=== PATIENT | female | born 1975 | race African-American/Black ===

== ENCOUNTER 2019-12-15 21:16 | Emergency (ER) | payer MEDICARE, OTHER ==
[~2019-12-15] VITALS: Ht 170.2 cm; Wt 122.5 kg
[2019-12-15] MEDS ORDERED: IBUPROFEN600 MG ORAL (21:36)
--- NOTE | 2019-12-15 21:36 | Emergency Room Report ---
History of Present Illness General Chief Complaint: Pain Source: Patient Present Illness HPI Is a 44-year-old female with no past medical history. She presents with chief plaint of left knee pain. Onset for the last 3 days or so. She just started a new job at the [employer] and been under feet a lot. Also a lot of walking. She has left knee pain. No trauma. No fever chills but felt swollen. When she walks the pain radiate down her lower extremity. No fever chills but no nausea no vomiting. Pain is 7 out of 10. Worse with walking. Better with rest. Allergies: Coded Allergies: No Known Allergies (Unverified , 12/15/19) COVID-19 Screening Contact w/high risk pt: No Recent Travel to affected area: No Experienced COVID-19 symptoms?: No Patient History Past Medical History: see triage record, old chart reviewed Past Surgical History: none Pertinent Family History: none Social History: Denies: smoking Now: No Immunizations: other Reviewed Nursing Documentation: PMH: Agreed; PSxH: Agreed Nursing Documentation-PMH Past Medical History: No History, Except For Hx Asthma: Yes Review of Systems Eye: Denies: eye pain, blurred vision ENT: Denies: ear pain, nose congestion, throat swelling Respiratory: Denies: cough, shortness of breath Cardiovascular: Denies: chest pain, palpitations Gastrointestinal: Denies: abdominal pain, diarrhea, nausea, vomiting Musculoskeletal: Reports: joint pain, joint swelling; Denies: back pain Skin: Denies: rash Neurological: Denies: headache, numbness Endocrine: Denies: increased thirst, increased urine Hematologic/Lymphatic: Denies: easy bruising All Other Systems: negative except mentioned in HPI Physical Exam Vital Signs Date Time Temp Pulse Resp B/P (MAP) Pulse Ox O2 Delivery O2 Flow Rate FiO2 12/15/19 21:21 98.4 81 18 138/96 (110) 96 Room Air Vitals unremarkable Sp02 EP Interpretation: reviewed, normal General Appearance: well appearing, no apparent distress, alert, obese Head: normocephalic, atraumatic Eyes: bilateral eye PERRL, bilateral eye EOMI ENT: hearing grossly normal, normal pharynx Neck: full range of motion, supple, no meningismus Respiratory: chest non-tender, lungs clear, normal breath sounds Cardiovascular #1: regular rate, rhythm, no murmur Gastrointestinal: normal bowel sounds, non tender, no mass, no organomegaly, no bruit, non-distended Musculoskeletal: back normal, normal range of motion, gait/station normal, other - Left knee: There is mild effusion. Knee is stable. No instability. Pulse normal. Sensation normal. Psychiatric: mood/affect normal Procedures Splinting Splinting : Consent: Verbal Location: Left knee Pre-Made Type: JUANI wrap Pre-Proc Neuro Vasc Exam: normal Post-Proc Neuro Vasc Exam: normal Patient Tolerated: Well Complications: None Medical Decision Making Diagnostic Impression: Primary Impression: Sprain of left knee Qualified Codes: S83.92XA - Sprain of unspecified site of left knee, initial encounter ER Course Patient with left knee sprain. There is no trauma. This probably secondary to her obesity. No evidence of any fracture or dislocation. No evidence of any septic joint. Other X-Ray Diagnostic Results Other X-Ray Diagnostic Results : X-Ray ordered: Left knee x-rays # of Views/Limited Vs Complete: 4 View Indication: Pain EP Interpretation: Yes Interpretation: no dislocation, no soft tissue swelling, no fractures Impression: No acute disease Electronically Signed by: Garfield Brice MD Last Vital Signs Date Time Temp Pulse Resp B/P (MAP) Pulse Ox O2 Delivery O2 Flow Rate FiO2 12/15/19 21:21 98.4 81 18 138/96 (110) 96 Room Air Status: improved Disposition: HOME, SELF-CARE Condition: Stable Scripts Ibuprofen* (MOTRIN*) 600 Mg Tablet 600 MG ORAL THREE TIMES A DAY, #30 TAB 0 Refills Prov: Garfield Brice MD 12/15/19 Additional Instructions: Ice pack to the knee. Elevate leg. Follow-up with your doctor in 7 days. You may need referral for physical therapy and or MRI. Return if symptoms worsen. Garfield Brice MD Dec 15, 2019 21:36
[2019-12-15 21:55] VITALS: BP 138/96
--- NOTE | 2019-12-16 10:00 | Diagnostic Imaging Report ---
Indication: Left knee pain Technique: 3 views of the knee Comparison: None Findings: There are degenerative changes of the patellofemoral joint compartment and minimal medial compartmental degenerative joint space narrowing. Osteophytes are seen laterally. There is a small suprapatellar effusion. No acute fractures. No dislocations. Impression: Degenerative changes. No acute bony trauma
== END 2019-12-15 21:55 | disposition home or self-care (01) ==
LOC: EMR 21:40
DX: S83.92XA Sprain of unspecified site of left knee, initial encounter (principal); Y93.01 Activity, walking, marching and hiking; E66.9 Obesity, unspecified; Z68.41 Body mass index [BMI] 40.0-44.9, adult
CPT/HCPCS: 99283

== ENCOUNTER 2020-03-06 23:13 | Emergency (ER) | payer MEDICARE ==
[~2020-03-06] VITALS: Ht 170.2 cm; Wt 113.4 kg
[~2020-03-06 23:13] MED LIST: IBUPROFEN600 MG ORAL
--- NOTE | 2020-03-06 23:35 | Emergency Room Report ---
History of Present Illness General Chief Complaint: General Complaint Source: Patient Present Illness HPI Patient is a 44-year-old female presents after increased right-sided headache. Intermittent episodes. Associated feeling of lightheadedness. Denies any vomiting or fever. Had not been having any chest pain or cough. Prior history of diabetes. She states she takes metformin. Patient denies any recent sick contacts. She is currently working at the post office. Reports having prior history of right eye surgery. Denies any new visual changes. Allergies: Coded Allergies: No Known Allergies (Unverified , 12/15/19) COVID-19 Screening Contact w/high risk pt: No Recent Travel to affected area: No Experienced COVID-19 symptoms?: No COVID-19 Testing performed BEAM WARPER: No Patient History Reviewed Nursing Documentation: PMH: Agreed; PSxH: Agreed Nursing Documentation-PMH Hx Hypertension: Yes Hx Asthma: Yes Hx Diabetes: Yes Review of Systems All Other Systems: negative except mentioned in HPI Physical Exam Vital Signs Date Time Temp Pulse Resp B/P (MAP) Pulse Ox O2 Delivery O2 Flow Rate FiO2 03/06/20 23:19 99.1 111 16 133/89 (104) 96 Room Air Sp02 EP Interpretation: reviewed, normal General Appearance: normal inspection, well appearing, no apparent distress, alert, GCS 15 Head: atraumatic ENT: normal ENT inspection, hearing grossly normal, normal voice Neck: normal inspection, full range of motion, supple, no bony tend Respiratory: normal inspection, lungs clear, normal breath sounds, no respiratory distress, no retraction, no wheezing Cardiovascular #1: regular rate, rhythm, no edema Gastrointestinal: normal inspection, normal bowel sounds, non tender, soft, no guarding, no hernia Genitourinary: no CVA tenderness Musculoskeletal: normal inspection, back normal, normal range of motion Neurologic: alert, motor strength/tone normal, fast food supervisor III-XII nml as tested, oriented x3, responsive, speech normal, normal inspection Psychiatric: normal inspection, judgement/insight normal, mood/affect normal Medical Decision Making Diagnostic Impression: Primary Impression: Headache Additional Impressions: Urinary tract infection Trichomoniasis ER Course Patient presented for headache. Differential diagnosis include was not limited to urinary tract infection, hypoglycemia, intracranial hemorrhage, coronavirus infection, among others. Because of complexity of patient's case laboratory tests and imaging studies were ordered.Patient laboratory testing showed some evidence of urinary infection. Patient was given IV Rocephin as well as IV fluids. She was noted to have improvement in her headache after Reglan. CT imaging showed no evidence of acute intracranial pathology. Urinalysis did show some evidence of trichomonas and patient was advised with this. She was given oral Flagyl as well as prescription for further medications for urinary infection. Patient is advised to return if worse. She is advised to have full STI testing with her doctor. Patient was also advised to have coronavirus testing as an outpatient. The patient is advised to follow up with primary care doctor in 1-2 days. Patient is advised to return if any worsening condition or if any changes in status that are concerning. This report is dictated with [employer]over lighthouse keeper software which may occasionally lead to discrepancies related to use of this software. Labs Test 03/06/20 23:30 White Blood Count 6.1 K/UL (4.8-10.8) Red Blood Count 4.75 M/UL (4.20-5.40) Hemoglobin 14.2 G/DL (12.0-16.0) Hematocrit 43.6 % (37.0-47.0) Mean Corpuscular Volume 92 FL (80-99) Mean Corpuscular Hemoglobin 30.0 PG (27.0-31.0) Mean Corpuscular Hemoglobin Concent 32.6 G/DL (32.0-36.0) Red Cell Distribution Width 14.2 % (11.6-14.8) Platelet Count 144 K/UL (150-450) Mean Platelet Volume 11.1 FL (6.5-10.1) Neutrophils (%) (Auto) 55.4 % (45.0-75.0) Lymphocytes (%) (Auto) 23.7 % (20.0-45.0) Monocytes (%) (Auto) 15.2 % (1.0-10.0) Eosinophils (%) (Auto) 0.1 % (0.0-3.0) Basophils (%) (Auto) 5.7 % (0.0-2.0) D-Dimer 0.53 mg/L FEU (0.00-0.49) Urine Color [place] Urine Appearance Slightly cloudy Urine pH 5 (4.5-8.0) Urine Specific [place] 1.020 (1.005-1.035) Urine Protein 3+ (NEGATIVE) Urine Glucose (UA) Negative (NEGATIVE) Urine Ketones 1+ (NEGATIVE) Urine Blood 5+ (NEGATIVE) Urine Nitrite Positive (NEGATIVE) Urine Bilirubin Negative (NEGATIVE) Urine Urobilinogen 1 MG/DL (0.0-1.0) Urine Leukocyte Esterase 3+ (NEGATIVE) Urine RBC Tntc /HPF (0 - 2) Urine WBC 20-30 /HPF (0 - 2) Urine Squamous Epithelial Cells Moderate /LPF (NONE/OCC) Urine Amorphous Sediment Moderate /LPF (NONE) Urine Bacteria Many /HPF (NONE) Urine Trichomonas Moderate /HPF (NONE) Urine HCG, Qualitative Negative (NEGATIVE) Sodium Level 139 MMOL/L (136-145) Potassium Level 3.8 MMOL/L (3.5-5.1) Chloride Level 103 MMOL/L (98-107) Carbon Dioxide Level 27 MMOL/L (21-32) Anion Gap 9 mmol/L (5-15) Blood Urea Nitrogen 11 mg/dL (7-18) Creatinine 1.3 MG/DL (0.55-1.30) Estimat Glomerular Filtration Rate 54.2 mL/min (>60) Glucose Level 117 MG/DL (74-106) Calcium Level 8.5 MG/DL (8.5-10.1) Total Bilirubin 0.3 MG/DL (0.2-1.0) Aspartate Amino Transf (AST/SGOT) 21 U/L (15-37) Alanine Aminotransferase (ALT/SGPT) 25 U/L (12-78) Alkaline Phosphatase 77 U/L (46-116) Total Creatine Kinase 127 U/L (26-308) C-Reactive Protein, Quantitative 2.3 mg/dL (0.00-0.90) Total Protein 8.2 G/DL (6.4-8.2) Albumin 4.0 G/DL (3.4-5.0) Globulin 4.2 g/dL Albumin/Globulin Ratio 1.0 (1.0-2.7) Last Vital Signs Date Time Temp Pulse Resp B/P (MAP) Pulse Ox O2 Delivery O2 Flow Rate FiO2 03/06/20 23:19 99.1 111 16 133/89 (104) 96 Room Air Status: improved Disposition: HOME, SELF-CARE Condition: Stable Scripts Ondansetron Odt* (ZOFRAN ODT*) 4 Mg Tab.rapdis 4 MG BC EVERY 8 HOURS PRN for Nausea & Vomiting, #10 TAB 0 Refills Prov: Antwon Gustafson MD 03/07/20 Cephalexin* (KEFLEX*) 500 Mg Capsule 500 MG ORAL EVERY 6 HOURS, #28 CAP Prov: Antwon Gustafson MD 03/07/20 Metronidazole* (FLAGYL*) 500 Mg Tablet 500 MG ORAL BID, #14 TAB Prov: Antwon Gustafson MD 03/07/20 Antwon Gustafson MD Mar 06, 2020 23:35
[2020-03-06] MEDS ORDERED: Metoclopramide 10mg/2ml Inj IVP ONE (23:45)
[2020-03-06 23:53] VITALS: BP 133/89
--- NOTE | 2020-03-06 23:56 | NUR ---
ED Nurse Note: Pt ambulated to ED from home c/o GORE and general malaise today. PT is A&Ox4. Pt has a hx of DM and HTN. BP 130's, BS 163. ERMD at bedside, pt placed on quality assurance monitor final
[2020-03-07 00:02] LABS: BASOPHILS % (AUTO) 5.7 % (0.0-2.0); EOSINOPHILS % (AUTO) 0.1 % (0.0-3.0); HEMATOCRIT 43.6 % (37.0-47.0); HEMOGLOBIN 14.2 G/DL (12.0-16.0); LYMPHOCYTES % (AUTO) 23.7 % (20.0-45.0); MEAN CORPUSCULAR VOLUME 92 FL (80-99); MONOCYTES % (AUTO) 15.2 % (1.0-10.0); NEUTROPHILS % (AUTO) 55.4 % (45.0-75.0); PLATELET COUNT 144 K/UL (150-450); RED BLOOD COUNT 4.75 M/UL (4.20-5.40); RED CELL DISTRIBUTION WIDTH 14.2 % (11.6-14.8); WHITE BLOOD COUNT 6.1 K/UL (4.8-10.8)
[2020-03-07 00:06] LABS: APPEARANCE,URINE SLIGHTLY CLOUDY; COLOR,URINE ORANGE
[2020-03-07 00:07] LABS: BILIRUBIN, URINE NEGATIVE (NEGATIVE); GLUCOSE, URINE (UA) NEGATIVE (NEGATIVE); KETONES,URINE 1+ (NEGATIVE); LEUKOCYTE ESTERASE ,URINE 3+ (NEGATIVE); NITRITE,URINE POSITIVE (NEGATIVE); PH,URINE 5 (4.5-8.0); PROTEIN,URINE 3+ (NEGATIVE); UROBILINOGEN,URINE 1 MG/DL (0.0-1.0)
[2020-03-07 00:11] LABS: ANION GAP 9 mmol/L (5-15); BLOOD UREA NITROGEN 11 mg/dL (7-18); CALCIUM 8.5 MG/DL (8.5-10.1); CARBON DIOXIDE 27 MMOL/L (21-32); CHLORIDE 103 MMOL/L (98-107); CREATININE 1.3 MG/DL (0.55-1.30); POTASSIUM 3.8 MMOL/L (3.5-5.1); SODIUM 139 MMOL/L (136-145)
[2020-03-07 00:16] LABS: ALANINE AMINOTRANSFERASE 25 U/L (12-78); ALKALINE PHOSPHATASE 77 U/L (46-116); ASPARTATE AMINO TRANSFERASE 21 U/L (15-37); BILIRUBIN,TOTAL 0.3 MG/DL (0.2-1.0)
[2020-03-07 00:17] LABS: CREATINE KINASE 127 U/L (26-308)
--- NOTE | 2020-03-07 00:34 | Diagnostic Imaging Report ---
EXAM: CT Head Without Intravenous Contrast CLINICAL HISTORY: PAIN TECHNIQUE: Axial computed tomography images of the head/brain without intravenous contrast. CTDI is 53 mGy and DLP is 1179 mGy-cm. One or more of the following dose reduction techniques were used: automated exposure control, adjustment of the mA and/or kV according to patient size, use of iterative reconstruction technique. COMPARISON: No relevant prior studies available. FINDINGS: Brain: No hemorrhage or mass effect. Ventricles: No hydrocephalus. Bones/joints: Unremarkable. Soft tissues: Unremarkable. Sinuses: Unremarkable. Mastoid air cells: Clear. IMPRESSION: No acute hemorrhage, hydrocephalus, or mass effect.
[2020-03-07] MEDS ORDERED: metroNIDAZOLE 500mg tab ORAL ONE (00:45)
[2020-03-07] MEDS ORDERED: cefTRIAXone 1 GM in NS 55 ML IVPB ONE (00:45)
[2020-03-07] MEDS ORDERED: ONDANSETRON ODT4 MG BC (00:52)
[2020-03-07] MEDS ORDERED: METRONIDAZOLE500 MG ORAL (00:52)
[2020-03-07] MEDS ORDERED: CEPHALEXIN500 MG ORAL (00:52)
[2020-03-07 01:00] VITALS: BP 133/89
--- NOTE | 2020-03-07 01:00 | NUR ---
ER DISCHARGE NOTE: Patient is cleared to be discharged per ERMD, pt is aox4, on room air, with stable vital signs. pt was given dc and prescription instructions, pt was able to verbalize understanding, pt id band and iv site removed without complications. pt is able to ambulate with steady gait. pt took all belongings.
[2020-03-10] MEDS ORDERED: BACTRIM DS TAB1 EAC1 ORAL (12:14)
== END 2020-03-07 01:00 | disposition home or self-care (01) ==
LOC: EMR 23:27
DX: R51 Headache (principal); N39.0 Urinary tract infection, site not specified; A59.9 Trichomoniasis, unspecified; E11.9 Type 2 diabetes mellitus without complications; I10 Essential (primary) hypertension
CPT/HCPCS: 36415; 70450; 80053; 81001; 81025; 82550; 85025; 85379; 86140; 87086; 87181; 96361; 96365; 96375; 99284; J0696; J2765; J7030